=== PATIENT | male | born 1970 | race Caucasian/White ===

== ENCOUNTER 2017-10-04 12:30 | Emergency (ER) | payer OTHER | END 2017-10-04 16:53 | disposition home or self-care (01) | LOC: M ED 12:30 | DX: G57.11 Meralgia paresthetica, right lower limb (principal); I10 Essential (primary) hypertension; Z79.899 Other long term (current) drug therapy; Z87.891 Personal history of nicotine dependence | CPT/HCPCS: 93971 ==

== ENCOUNTER → 2017-12-06 | Outpatient (CLI) | payer OTHER | LOC: M WUC 13:24 | DX: M85.88 Other specified disorders of bone density and structure, other site (principal); M25.78 Osteophyte, vertebrae; M51.37 Other intervertebral disc degeneration, lumbosacral region; G57.10 Meralgia paresthetica, unspecified lower limb; M54.5 Low back pain | CPT/HCPCS: 72110 ==

== ENCOUNTER 2018-03-04 16:38 | Emergency (ER) | payer OTHER | END 2018-03-04 17:50 | disposition home or self-care (01) | LOC: M ED 16:38 | DX: S13.4XXA Sprain of ligaments of cervical spine, initial encounter (principal); S46.902A Unspecified injury of unspecified muscle, fascia and tendon at shoulder and upper arm level, left arm, initial encounter; V49.40XA Driver injured in collision with unspecified motor vehicles in traffic accident, initial encounter; Y92.410 Unspecified street and highway as the place of occurrence of the external cause; I10 Essential (primary) hypertension; Z79.899 Other long term (current) drug therapy | CPT/HCPCS: 99283 ==

== ENCOUNTER → 2019-03-06 | Outpatient (CLI) | payer OTHER ==
[~2019-03-06] MED LIST: IBUP-1022 PO; LISI10TA4 PO; NEUR300C PO; PRED20TA PO; ROBA500T PO
[2019-03-06 18:02] LABS: BASO # 0.1 10^3/uL (0.0-0.2); BASO % 1.5 % (0.0-1.0); EOS # 0.6 10^3/uL (0.0-0.50); EOS % 8.6 % (0.0-3.0); HEMATOCRIT 46.2 % (42.0-52.0); HEMOGLOBIN 14.9 g/dl (13.5-17.5); LYMPH # 1.6 10^3/uL (1.5-4.5); LYMPH % 23.7 % (24.0-44.0); MEAN CORPUSCULAR HEMOGLOBIN 27.9 pg (27.0-33.0); MEAN CORPUSCULAR HGB CONC 32.3 g/dl (32.0-36.5); MEAN CORPUSCULAR VOLUME 86.5 fl (80.0-96.0); MONO # 0.7 10^3/uL (0.0-0.8); MONO % 9.6 % (0.0-5.0); NEUTROPHILS # 3.8 10^3/uL (1.8-7.7); NEUTROPHILS % 56.2 % (36.0-66.0); PLATELET COUNT, AUTOMATED 278 10^3/uL (150-450); RED BLOOD COUNT 5.34 10^6/uL (4.30-6.10); WHITE BLOOD COUNT 6.8 10^3/uL (4.0-10.0)
[2019-03-06 18:04] LABS: ALBUMIN 4.1 GM/DL (3.2-5.2); ALT/SGPT 127 U/L (12-78); BILIRUBIN,TOTAL 0.9 MG/DL (0.2-1.0); BLOOD UREA NITROGEN 14 MG/DL (7-18); CARBON DIOXIDE LEVEL 27 MEQ/L (21-32); CHLORIDE LEVEL 104 MEQ/L (98-107); CREATININE FOR GFR 1.24 MG/DL (0.70-1.30); GLOMERULAR FILTRATION RATE > 60.0 (>60); GLUCOSE, FASTING 88 MG/DL (70-100); POTASSIUM SERUM 4.2 MEQ/L (3.5-5.1); SODIUM LEVEL 141 MEQ/L (136-145); TOTAL PROTEIN 7.6 GM/DL (6.4-8.2)
== END ==
LOC: M WUC 10:33
PROVIDERS: ATTEND Nurse Practitioner Family
DX: I10 Essential (primary) hypertension (principal)

== ENCOUNTER 2019-05-07 22:16 | Emergency (ER) | payer OTHER ==
[~2019-05-07] VITALS: Ht 172.7 cm; Wt 106.8 kg
[2019-05-08 00:29] VITALS: BP 121/67
--- NOTE | 2019-05-08 00:29 | REPVR ---
EXAM: US Duplex Right Lower Extremity Veins, Limited EXAM DATE/TIME: 05/07/2019 11:50 PM CLINICAL HISTORY: 49 years old, male; Pain; Leg, lower; Right; Additional info: Right lower leg swelling; R/O dvt TECHNIQUE: Imaging protocol: Real-time Duplex ultrasound of the Right Lower Extremity with 2-D escalante scale, color Doppler flow and spectral waveform analysis with image documentation. Limited exam was focused on the right lower extremity veins. COMPARISON: No relevant prior studies available. FINDINGS: Right deep veins: Unremarkable. The common femoral, femoral, proximal profunda femoral and popliteal veins are patent without thrombus. Normal Doppler waveforms. Normal compressibility and/or augmentation response. Right superficial veins: Thrombosed superficial varicosities along the anterior aspect of the lower leg, corresponding to the patient's palpable abnormality. Saphenofemoral junction is patent without thrombus. Soft tissues: Unremarkable. IMPRESSION: 1. No sonographic evidence of deep vein thrombosis. 2. Superficial thrombophlebitis, as described above. Electronically signed by: Kavon Ceron On 05/08/2019 00:28:44 AM
[2019-05-08] MEDS ORDERED: CEPH500C PO (01:05)
[2019-05-08] MEDS ORDERED: CEPHALEXIN 500 MG CAP PO ONE (01:15)
[2019-10-06] MEDS ORDERED: LYRI75CA PO (14:40)
[2019-10-06] MEDS ORDERED: OMEP40CA97 PO (14:40)
== END 2019-05-08 01:14 | disposition home or self-care (01) ==
LOC: M ED 22:16
DX: I80.00 Phlebitis and thrombophlebitis of superficial vessels of unspecified lower extremity (principal); L03.116 Cellulitis of left lower limb; I10 Essential (primary) hypertension; Z79.899 Other long term (current) drug therapy

== ENCOUNTER → 2019-08-15 | Outpatient (CLI) | payer OTHER ==
[~2019-08-15] MED LIST changes: +CEPH500C PO
[2019-08-15 16:59] LABS: ALBUMIN 3.9 GM/DL (3.2-5.2); ALT/SGPT 79 U/L (12-78); BLOOD UREA NITROGEN 15 MG/DL (7-18); CARBON DIOXIDE LEVEL 28 MEQ/L (21-32); CHLORIDE LEVEL 105 MEQ/L (98-107); CHOLESTEROL LEVEL 149 MG/DL (<200); CHOLESTEROL RISK RATIO 3.465 (<5); CREATININE FOR GFR 1.24 MG/DL (0.70-1.30); FREE T4 1.01 NG/DL (0.76-1.46); GLOMERULAR FILTRATION RATE > 60.0 (>56); GLUCOSE, FASTING 95 MG/DL (70-100); HDL CHOLESTEROL 43 MG/DL (>40); LDL CHOLESTEROL 84 MG/DL (<100); NON-HDL-C 106 MG/DL; POTASSIUM SERUM 4.7 MEQ/L (3.5-5.1); SODIUM LEVEL 139 MEQ/L (136-145); TOTAL PROTEIN 7.4 GM/DL (6.4-8.2); TRIGLYCERIDES LEVEL 112 MG/DL (<150)
== END ==
LOC: M WUC 11:04
PROVIDERS: ATTEND Physician Assistant
DX: Z12.5 Encounter for screening for malignant neoplasm of prostate (principal); I10 Essential (primary) hypertension

== ENCOUNTER 2019-10-13 11:18 | Day surgery (SDC) | payer OTHER ==
[~2019-10-13] VITALS: Ht 172.7 cm; Wt 105.7 kg
[~2019-10-13 11:18] MED LIST changes: +LYRI75CA PO; +OMEP40CA97 PO
[2019-10-13] MEDS ORDERED: LIDOCAINE 2% INJ 100 MG/5 ML SDV (FOR ANES.) As Ordered ONE (12:31)
[2019-10-13] MEDS ORDERED: propofoL 200 MG/20 ML VIAL As Ordered ONE ×2 (12:31→13:05)
[2019-10-13] MEDS: NS 1,000 ML IV SCH (12:32)
--- NOTE | 2019-10-13 13:13 | ROOR ---
Patient Name: Giovani Menjivar Procedure Date: 10/13/2019 12:55 PM Date of : 1970 Age: 49 Room: [facility] Gender: Male Note Status: Finalized Procedure: Colonoscopy Indications: Screening for colorectal malignant neoplasm Providers: Juan A Negron Jr, MD Referring MD: Jeni PATINO DO Requesting Provider: Medicines: Propofol per Anesthesia Complications: No immediate complications. Procedure: Pre-Anesthesia Assessment: - Prior to the procedure, a History and Physical was performed, and patient medications and allergies were reviewed. The patient is competent. The risks and benefits of the procedure and the sedation options and risks were discussed with the patient. All questions were answered and informed consent was obtained. Patient identification and proposed procedure were verified by the physician and the nurse in the pre-procedure area and in the procedure room. Mental Status Examination: alert and oriented. Airway Examination: normal oropharyngeal airway and neck mobility. Respiratory Examination: clear to auscultation. CV Examination: normal. ASA Grade Assessment: II - A patient with mild systemic disease. After reviewing the risks and benefits, the patient was deemed in satisfactory condition to undergo the procedure. The anesthesia plan was to use moderate sedation / analgesia (conscious sedation). Immediately prior to administration of medications, the patient was re-assessed for adequacy to receive sedatives. The heart rate, respiratory rate, oxygen saturations, blood pressure, adequacy of pulmonary ventilation, and response to care were monitored throughout the procedure. The physical status of the patient was re-assessed after the procedure. The Colonoscope was introduced through the anus and advanced to the cecum, identified by appendiceal orifice and ileocecal valve. The colonoscopy was performed without difficulty. The patient tolerated the procedure well. The quality of the bowel preparation was adequate. Findings: The sigmoid colon, descending colon, transverse colon, ascending colon, cecum, appendiceal orifice and ileocecal valve appeared normal. Three polyps were found in the rectum and recto-sigmoid colon. The polyps were diminutive in size. These polyps were removed with a cold snare. Resection and retrieval were complete. Non-bleeding internal hemorrhoids were found during endoscopy. The hemorrhoids were Grade III (internal hemorrhoids that prolapse but require manual reduction). Impression: - The sigmoid colon, descending colon, transverse colon, ascending colon, cecum, appendiceal orifice and ileocecal valve are normal. - Three diminutive polyps in the rectum and at the recto-sigmoid colon, removed with a cold snare. Resected and retrieved. - Non-bleeding internal hemorrhoids. Recommendation: - Discharge patient to home (ambulatory). - Repeat colonoscopy in 5-10 years for surveillance based on pathology results. Juan A Negron MD Juan A Negron Jr, MD 10/13/2019 1:12:31 PM Electronically signed by Juan A Negron Jr, MD Number of Addenda: 0 Note Initiated On: 10/13/2019 12:55 PM Estimated Blood Loss: Estimated blood loss: none.
[2019-10-13 13:30] VITALS: BP 121/92
== END 2019-10-13 13:42 | disposition home or self-care (01) ==
LOC: M OPP 11:18
PROVIDERS: ATTEND Surgery
DX: Z12.11 Encounter for screening for malignant neoplasm of colon (principal); K64.2 Third degree hemorrhoids; K62.1 Rectal polyp; D12.7 Benign neoplasm of rectosigmoid junction; I10 Essential (primary) hypertension; K21.9 Gastro-esophageal reflux disease without esophagitis; E66.01 Morbid (severe) obesity due to excess calories; Z79.899 Other long term (current) drug therapy

== ENCOUNTER → 2019-12-18 | Outpatient (CLI) | payer OTHER ==
--- NOTE | 2019-12-18 16:38 | REP ---
REASON: Pain after trauma. There is mild to moderate diffuse soft tissue swelling involving the 2nd digit. There is no evidence of an acute fracture. Electronically Signed by Sav Snow DO 12/18/2019 04:48 P
== END ==
LOC: M WUC 12:00
PROVIDERS: ATTEND Physician Assistant
DX: M79.644 Pain in right finger(s) (principal)

== ENCOUNTER 2020-06-02 19:27 | Inpatient (IN) | payer OTHER ==
[~2020-06-02] VITALS: Ht 172.7 cm; Wt 112.1 kg
[2020-06-02] MEDS ORDERED: NS 1,000 ML IV ONE (20:15)
[2020-06-02 20:28] LABS: VENOUS BASE EXCESS -5.1 (-2.0-2.0); VENOUS HCO3 20.5 MEQ/L (23.0-27.0); VENOUS PARTIAL PRESSURE CO2 39.9 mmHg (38.0-50.0); VENOUS PARTIAL PRESSURE O2 70.1 mmHg (30.0-50.0); VENOUS PH 7.328 UNITS (7.330-7.430); VENOUS STANDARD HCO3 20.2 MEQ/L; VENOUS TOTAL CO2 21.7 MEQ/L (24.0-28.0)
[2020-06-02 20:29] LABS: VENOUS O2 SATURATION 92.3 % (60.0-80.0)
[2020-06-02 20:34] LABS: BASO # 0.1 10^3/uL (0.0-0.2); BASO % 0.8 % (0.0-1.0); EOS # 0.2 10^3/uL (0.0-0.5); EOS % 2.2 % (0.0-3.0); HEMATOCRIT 48.1 % (42.0-52.0); HEMOGLOBIN 14.8 g/dl (13.5-17.5); LYMPH % 13.5 % (24.0-44.0); MEAN CORPUSCULAR HEMOGLOBIN 27.5 pg (27.0-33.0); MEAN CORPUSCULAR HGB CONC 30.8 g/dl (32.0-36.5); MEAN CORPUSCULAR VOLUME 89.2 fl (80.0-96.0); MONO # 0.7 10^3/uL (0.0-0.8); MONO % 9.1 % (0.0-5.0); NEUTROPHILS # 5.7 10^3/uL (1.5-8.5); NEUTROPHILS % 74.3 % (36.0-66.0); PLATELET COUNT, AUTOMATED 258 10^3/uL (150-450); RED BLOOD COUNT 5.39 10^6/uL (4.30-6.10); WHITE BLOOD COUNT 7.7 10^3/uL (4.0-10.0)
[2020-06-02 20:52] LABS: OSMOLALITY SERUM 334 MOSM/KG (275-295)
[2020-06-02 20:58] LABS: HEMOGLOBIN A1c 10.9 %
[2020-06-02 21:04] LABS: ACETONE/KETONE 1.38 MG/DL (<2.81); ALBUMIN 4.2 GM/DL (3.2-5.2); ALT/SGPT 153 U/L (12-78); BILIRUBIN,DIRECT 0.3 MG/DL (0.0-0.2); BILIRUBIN,TOTAL 1.5 MG/DL (0.2-1.0); BLOOD UREA NITROGEN 19 MG/DL (7-18); CARBON DIOXIDE LEVEL 22 MEQ/L (21-32); CHLORIDE LEVEL 86 MEQ/L (98-107); CK-MB VALUE MASS 2.5 NG/ML (<3.6); CPK CREATINE PHOSPHOKINASE 924 U/L (39-308); CREATININE FOR GFR 2.05 MG/DL (0.70-1.30); GLOMERULAR FILTRATION RATE 36.6 (>56); LIPASE 177 U/L (73-393); MAGNESIUM LEVEL 2.5 MG/DL (1.8-2.4); MB/CK RELATIVE INDEX 0.27 (< OR =4); PHOSPHORUS LEVEL 4.2 MG/DL (2.5-4.9); POTASSIUM SERUM 5.8 MEQ/L (3.5-5.1); SODIUM LEVEL 119 MEQ/L (136-145); TOTAL PROTEIN 8.4 GM/DL (6.4-8.2); TROPONIN I < 0.02 NG/ML (< 0.10)
[2020-06-02 21:05] LABS: GLUCOSE, FASTING 1219 MG/DL (70-100)
[2020-06-02] MEDS ORDERED: HumuLIN R (REGULAR) INSULIN (NovoLIN R) **100U/ML** PER UNIT As Ordered ONE (21:26)
[2020-06-02] MEDS ORDERED: HumuLIN R (REGULAR) INSULIN (NovoLIN R) **100U/ML** PER UNIT IV ONE (21:30)
[2020-06-02] MEDS ORDERED: NS 2,200 ML in IV 1 EA IV ONE (21:30)
[2020-06-02] MEDS ORDERED: INSULIN REGULAR IN 0.9 % NACL 100 UNIT in IV 1 EA IV SCH ×2 (22:14)
[2020-06-02] MEDS ORDERED: NS 1,000 ML IV SCH (22:15)
[2020-06-02 23:00] LABS: VENOUS PH 7.398 UNITS (7.330-7.430)
[2020-06-02 23:01] LABS: VENOUS BASE EXCESS -4.2 (-2.0-2.0); VENOUS HCO3 19.5 MEQ/L (23.0-27.0); VENOUS O2 SATURATION 99.5 % (60.0-80.0); VENOUS PARTIAL PRESSURE CO2 32.3 mmHg (38.0-50.0); VENOUS PARTIAL PRESSURE O2 209.4 mmHg (30.0-50.0); VENOUS STANDARD HCO3 21.1 MEQ/L; VENOUS TOTAL CO2 20.5 MEQ/L (24.0-28.0)
[2020-06-02] MEDS ORDERED: GLUCOSE 4GM CHEW TABLET PO PRN (23:15)
[2020-06-02] MEDS ORDERED: GLUCAGON INJ 1MG VIAL SC PRN (23:15)
[2020-06-02] MEDS ORDERED: DEXTROSE 50% 50 ML SYRINGE IV PRN (23:15)
[2020-06-02 23:32] LABS: CALCIUM LEVEL 8.7 MG/DL (8.5-10.1); CREATININE FOR GFR 1.56 MG/DL (0.70-1.30); GLOMERULAR FILTRATION RATE 50.2 (>56)
--- NOTE | 2020-06-02 23:34 | HPEPDOC ---
General Date of Admission Jun 02, 2020 at 21:24 Date of Service: Jun 02, 2020 Chief Complaint The patient is a 50-year-old male admitted with a reason for visit of Uncontrolled Type 2 Diabetes Mellitus W/ Hyperosmo. Source: Patient Exam Limitations: No limitations Severity: Moderate, Severe Associated Symptoms: Other (dry mouth, blurry vision, diarrhea) History of Present Illness Patient is a 50 yo male with PMH of HTN and GERD without patient knowing having hx of diabetes mellitus presented to [facility] due to dry mouth, blurry vision, and diarrhea. He reported having dry mouth for 1 wk, blurry vision for 4 days, diarrhea for 2 days,and left foot cramp with b/l hand cramp starting today. In addition she also reported he also reported polydipsia and polyuria for the past week without polyphagia. Reported chronic right thigh numbness for years; reported he was not checked/screened for DM prior. Denies any fever, chills, nausea, vomiting, abdominal pain, or any other symptoms except for above Home Medications Scheduled Lisinopril (Lisinopril) 10 Mg Tab, 10 MG PO DAILY, (Reported) Omeprazole (Omeprazole) 40 Mg Capsule.dr, 40 MG PO DAILY, (Reported) Pregabalin (Lyrica) 75 Mg Capsule, 75 MG PO TID, (Reported) Allergies Coded Allergies: No Known Allergies (Unverified , 10/06/19) Past Medical History Medical History HTN GERD Right thigh numbness(thigh to knee), chronic for years Surgical History Reported left groin hernia surgery done more than 10 years ago Screening colonoscopy 10/13/2019 Social History * Smoker: Denies Alcohol: Denies Drugs: denies Lives at home with and 3 kids A-FIB/CHADSVASC A-FIB History Current/History of A-Fib/PAF?: No Review of Systems Constitutional: Denies: Chills, Fever Eyes: Reports: Vision change (blurry vision) ENT: Reports: Other Symptoms (dry mouth) Pulmonary: Denies: Dyspnea Cardiovascular: Denies: Chest Pain, Palpitations Gastrointestinal: Reports: Diarrhea; Denies: Nausea, Vomiting, Abdominal Pain Endocrine: Reports: Polydipsia, Polyuria; Denies: Polyphagia Musculoskeletal: Reports: Other Symptoms (B/l hand cramping with left foot cramping) Neurological: Reports: Numbness (right thigh chronic numbness); Denies: Change in speech Physical Examination General Exam: Positive: Alert, Cooperative, No Acute Distress Eye Exam: Positive: Conjunctiva & lids normal, EOMI, Other Eye Symptoms (B/l pupil equal round and reactive); Negative: Sclera icteric ENT Exam: Positive: Atraumatic, Tongue Midline, Nares Patent Neck Exam: Positive: Supple Chest Exam: Positive: Clear to auscultation, Normal air movement; Negative: Rales, Rhonchi, Wheezing Heart Exam: Positive: Tachycardic (mildly tachycardic), Regular Rhythm, Normal S1, Normal S2; Negative: Murmurs, Rubs Abdomen Exam: Positive: Normal bowel sounds, Soft, Other (obese abdomen); Negative: Tenderness Extremity Exam: Negative: Edema, Swelling Neuro Exam: Positive: Normal Speech, Strength at 5/5 X4 ext, Normal Tone, Sensation Intact, Cranial Nerves 3-12 NL, Other (no numbness or tingling elicited upon touch) Psych Exam: Positive: Mental status NL, Mood NL, Memory Intact, Oriented x 3 Vital Signs Vital Signs Date Time Temp Pulse Resp B/P (MAP) Pulse Ox O2 Delivery O2 Flow Rate FiO2 06/02/20 21:17 102 20 136/70 (92) 95 Room Air 06/02/20 19:28 98.1 Laboratory Data Labs 24H Laboratory Tests 2 06/02/20 20:12: Immature Granulocyte % (Auto) 0.1, Neutrophils (%) (Auto) 74.3H, Lymphocytes (%) (Auto) 13.5L, Monocytes (%) (Auto) 9.1H, Eosinophils (%) (Auto) 2.2, Basophils (%) (Auto) 0.8, Neutrophils # (Auto) 5.7, Lymphocytes # (Auto) 1.0L, Monocytes # (Auto) 0.7, Eosinophils # (Auto) 0.2, Basophils # (Auto) 0.1, Nucleated Red Blood Cells % (auto) 0.0, Urine Color COLORLESS, Urine Appearance CLEAR, Urine pH 6.0, Urine Specific [place] 1.023, Urine Protein NEGATIVE, Urine Glucose (UA) 3+H, Urine Ketones NEGATIVE, Urine Blood NEGATIVE, Urine Nitrite NEGATIVE, Urine Bilirubin NEGATIVE, Urine Urobilinogen 0.2, Urine Leukocyte Esterase NEGATIVE, Urine WBC (Auto) 0, Urine RBC (Auto) 0, Urine Hyaline Casts (Auto) 0, Urine Bacteria (Auto) NEGATIVE, Urine Squamous Epithelial Cells 0, Urine Sperm (Auto) , Blood Gas Bicarbonate Standard 20.2, Venous Blood pH 7.328L, Venous Blood Partial Pressure CO2 39.9, Venous Blood Partial Pressure O2 70.1H, Venous Blood Total Carbon Dioxide 21.7L, Venous Blood HCO3 20.5L, Venous Blood Oxygen Saturation 92.3H, Venous Blood Base Excess -5.1L, Anion Gap 11, Glomerular Filtration Rate 36.6L, Estimated Mean Plasma Glucose 266H, Hemoglobin A1c 10.9, Osmolality 334H, Calcium Level 9.0, Phosphorus Level 4.2, Magnesium Level 2.5H, Total Bilirubin 1.5H, Direct Bilirubin 0.3H, Aspartate Amino Transf (AST/SGOT) 63H, Alanine Aminotransferase (ALT/SGPT) 153H, Alkaline Phosphatase 122H, Total Creatine Kinase 924H, Creatine Kinase MB 2.5, Creatine Kinase MB Relative Index 0.27, Troponin I < 0.02, Total Protein 8.4H, Albumin 4.2, Albumin/Globulin Ratio 1.0, Lipase 177, B-Hydroxybutyrate 1.38 06/02/20 22:49: Blood Gas Bicarbonate Standard 21.1, Venous Blood pH 7.398, Venous Blood Partial Pressure CO2 32.3L, Venous Blood Partial Pressure O2 209.4H, Venous Blood Total Carbon Dioxide 20.5L, Venous Blood HCO3 19.5L, Venous Blood Oxygen Saturation 99.5H, Venous Blood Base Excess -4.2L CBC/BMP Laboratory Tests 06/02/20 20:12 Microbiology Microbiology 06/02/20 Blood Culture, Received Pending Assessment/Plan 1. HHS likely 2/2 undiagnosed type 2 DM. A1C 10.9. Serum ketone within reference range. Glucose 1219 on BMP. Blurry vision, dry mouth, cramping in extremities,polydipsia, polyuria, no AMS. Pt carry normal conversation and answers questions appropriately. Pt already received 3L NS in ER. Appears only m inimally hypovolemic at this time. However appears to have FREEDOM in ER, will wait for recheck BMP to consider if further IVF is needed as he received 3 L NS bolus in ER. Na tugtnriugau=694, corrected Wx=811. Pt will be admitted to ICU. Glucose checks Q1H, s/p IV insulin bolus, will start IV regular insulin drip. BMP Q2H. NPO except for meds for now. Will resume consistent carbohydrate diet and start with 20 units levemir BID and keep IV insulin drip for 3 hours after SC insulin. If recheck BMP shows hypernatremia with improvement of FREEDOM(proving prerenal FREEDOM), will start 0.45%NaCl based on protocol. Seizure precaution, fall precaution, neuro checks, vital signs, hypoglycemia protocol. 2. FREEDOM, likely pre-renal. Will monitor BMP to see if there's improvement with IVF 3. HTN. Will hold home med lisinopril at this time d/t FREEDOM. Consider amlodipine if BP elevates vs other agents depending on other vitals 4. GERD. Cont home med Omeprazole 5.Chronic neuropathy with right thigh numbness, likely 2/2 undiagnosed type 2 DM. A1C 10.9. Cont home med gabapentin. 6. Hyperkalemia 2/2 extracellular shift from lack of endogenous insulin from undiagnosed DM. K=5.8 in ER. BMP Q2H for HHS. Tele monitor for electrolyte derangements. DVT prophylaxis: SCD and TEDS Plan / VTE VTE Prophylaxis Ordered?: Yes Plan IVF: Initiate Diet: Make NPO Diagnostics: Check Labs, Repeat Labs in AM Anticipated Discharge: Home GME ATTESTATION GME ATTESTATION My faculty preceptor for this patient encounter was physically present during the encounter and was fully available. All aspects of the patient interview, examination, medical decision making process, and medical care plan development were reviewed and approved by the faculty preceptor. The faculty preceptor is aware and concurs with the plan as stated in the body of this note and will attest to such by his/her cosignature. ATTENDING NOTE I reviewed the note and agree with the findings as documented. is a 50 yr old M w a hx of HTN, Neuropathy & Obesity who presented with c/o dry mouth, blurry vision, & diarrhea; he will be admitted for management of hyperosmolar hyperglycemic state w/o comma, FREEDOM, SIRS, elevated CPK, and transaminitis. We will treat him for his HHS and FREEDOM, f/u blood cx, GI panel, liver US, hep panel, renal US, Ulytes and trend CPK rest per 's H&P LEO FLOYD DO Jun 02, 2020 23:34 FABIAN TREVIÑO MD Jun 03, 2020 01:58
[2020-06-02] MEDS ORDERED: POTASSIUM CHLORIDE INJ 30 MEQ in NS 1,000 ML IV ONE (23:45)
[2020-06-02] MEDS ORDERED: NS 0.45% 1,000 ML IV SCH (23:45)
[2020-06-02 23:48] VITALS: BP 155/89
[2020-06-03] VITALS (7 sets, daily range): BP systolic 121–139; BP diastolic 63–75
[2020-06-03 01:56] LABS: VENOUS BASE EXCESS -6.1 (-2.0-2.0); VENOUS HCO3 19.1 MEQ/L (23.0-27.0); VENOUS O2 SATURATION 91.1 % (60.0-80.0); VENOUS PARTIAL PRESSURE CO2 37.2 mmHg (38.0-50.0); VENOUS PARTIAL PRESSURE O2 62.5 mmHg (30.0-50.0); VENOUS PH 7.329 UNITS (7.330-7.430); VENOUS STANDARD HCO3 19.4 MEQ/L; VENOUS TOTAL CO2 20.3 MEQ/L (24.0-28.0)
[2020-06-03] MEDS ORDERED: POTASSIUM CHLORIDE INJ 10 MEQ in NS 1,000 ML IV ONE (02:00)
[2020-06-03] MEDS: INSULIN IV RATE CHANGE DOCUMENTATION ML/HR XX SCH ×6 (02:04→09:11)
[2020-06-03 02:40] LABS: OSMOLALITY SERUM 304 MOSM/KG (275-295)
[2020-06-03 02:42] LABS: BLOOD UREA NITROGEN 13 MG/DL (7-18); CALCIUM LEVEL 8.5 MG/DL (8.5-10.1); CARBON DIOXIDE LEVEL 26 MEQ/L (21-32); CHLORIDE LEVEL 106 MEQ/L (98-107); CREATININE FOR GFR 1.35 MG/DL (0.70-1.30); GLOMERULAR FILTRATION RATE 59.3 (>56); GLUCOSE, FASTING 383 MG/DL (70-100); MAGNESIUM LEVEL 2.2 MG/DL (1.8-2.4); PHOSPHORUS LEVEL 2.7 MG/DL (2.5-4.9); POTASSIUM SERUM 4.2 MEQ/L (3.5-5.1); SODIUM LEVEL 139 MEQ/L (136-145); TROPONIN I < 0.02 NG/ML (< 0.10)
[2020-06-03] MEDS: KCL 10MEQ IN D5/0.45NS 1000ML 1,000 ML IV SCH ×2 (04:00→08:32)
[2020-06-03 06:55] LABS: ALBUMIN 3.6 GM/DL (3.2-5.2); ALT/SGPT 116 U/L (12-78); BILIRUBIN,DIRECT 0.3 MG/DL (0.0-0.2); BILIRUBIN,TOTAL 0.9 MG/DL (0.2-1.0); CPK CREATINE PHOSPHOKINASE 860 U/L (39-308); TOTAL PROTEIN 6.9 GM/DL (6.4-8.2)
[2020-06-03 07:22] LABS: OSMOLALITY SERUM 298 MOSM/KG (275-295)
[2020-06-03 07:53] LABS: BLOOD UREA NITROGEN 12 MG/DL (7-18); CALCIUM LEVEL 8.3 MG/DL (8.5-10.1); CARBON DIOXIDE LEVEL 28 MEQ/L (21-32); CHLORIDE LEVEL 110 MEQ/L (98-107); GLOMERULAR FILTRATION RATE > 60.0 (>56); GLUCOSE, FASTING 187 MG/DL (70-100); PHOSPHORUS LEVEL 1.7 MG/DL (2.5-4.9); POTASSIUM SERUM 3.9 MEQ/L (3.5-5.1); SODIUM LEVEL 142 MEQ/L (136-145); TROPONIN I < 0.02 NG/ML (< 0.10)
[2020-06-03] MEDS: ENOXAPARIN 40MG/0.4ML SYRINGE (J1650 PER 10MG) SC SCH (08:17)
[2020-06-03] MEDS: PREGABALIN 75 MG CAP(LYRICA) PO SCH ×3 (08:17→20:29)
[2020-06-03] MEDS: OMEPRAZOLE 20 MG CAP PO SCH (08:17)
[2020-06-03] MEDS: LEVEMIR (INSULIN DETEMIR) 1 UNITS/0.01ML SC SCH (08:17)
[2020-06-03 10:55] LABS: BLOOD UREA NITROGEN 12 MG/DL (7-18); CALCIUM LEVEL 8.2 MG/DL (8.5-10.1); CARBON DIOXIDE LEVEL 24 MEQ/L (21-32); CHLORIDE LEVEL 108 MEQ/L (98-107); CREATININE FOR GFR 1.22 MG/DL (0.70-1.30); GLOMERULAR FILTRATION RATE > 60.0 (>56); GLUCOSE, FASTING 263 MG/DL (70-100); POTASSIUM SERUM 3.9 MEQ/L (3.5-5.1); SODIUM LEVEL 139 MEQ/L (136-145)
[2020-06-03 11:55] LABS: MAGNESIUM LEVEL 1.8 MG/DL (1.8-2.4)
[2020-06-03] MEDS: NEUTRA-PHOS 1.5 GM PACKET PO SCH ×3 (12:09→20:29)
[2020-06-03] MEDS: HumaLOG INSULIN (NovoLOG) PER UNIT SC SCH ×2 (12:10→17:19)
--- NOTE | 2020-06-03 13:32 | IPNPDOC ---
Text Note Date of Service The patient was seen on 06/03/20. NOTE Subjective: Patient is a 50 year old male with PMH of HTN, GERD who presented to the ER with complaints of dry mouth, burry vision and diarrhea. On arrival to the ER patient was found to have a glucose of 1200 who was admitted to the ICU for HHS. Patient was admitted to the hospitalist service for further evaluation and treatment. Patient reports that he was not diagnosed with DM2 in the past. Has not been on any medications as an outpatient. Patient was seen and examined at the bedside. Currently patient reports nausea. Denies any CP, SOB or palpitations. Denies any abdominal pain, diarrhea / constipation or urinary discomfort. Objective: Vitals (See below) General: Lying in bed, no acute distress, comfortable, AAOx3 HEENT: NC, AT CVS: +S1S2 Lungs: Fair air entry b/l, no wheezing / rhonchi / rales Abdomen: Soft, ND, NT Extremities: No edema noted, - Calf tenderness Assessment and plan: s/p HHS - likely 2/2 undiagnosed type 2 DM - Patient does not have a prior history of DM2 - Patient was found to have a glucose of 1200 and Osmolality of 334 - He was admitted to ICU for insulin drip - Patient labs have normalized; s/p Insulin drip - Bridged to Levemir long acting and will start ISS (AC/HS) s/p FREEDOM - Cr appears to be at baseline - Will stop IV fluids Hypophosphatemia - Will supplement s/p Hyperkalemia HTN - BP well controlled - Will resume Lisinopril Lyrica - c/w Gabapentin GERD - c/w Omeprazole DVT prophylaxis - c/w SCD and TEDS Disposition: - Anticipate DC tomorrow VS,Fishbone, I+O VS, Fishbone, I+O Laboratory Tests 06/02/20 20:12 06/02/20 22:49 06/03/20 01:46 06/03/20 06:12 Vital Signs Date Time Temp Pulse Resp B/P (MAP) Pulse Ox O2 Delivery O2 Flow Rate FiO2 06/03/20 12:00 97.4 91 18 135/72 (93) 97 Room Air I&O- Last 24 Hours up to 6 AM 06/03/20 06:00 Intake Total 5050 ml Output Total 2800 ml Balance 2250 ml SANCHEZ,VIJESH MD Jun 03, 2020 13:32
[2020-06-03] MEDS: lisinopriL 10 MG TAB PO SCH (14:53)
--- NOTE | 2020-06-03 15:54 | REPVR ---
PROCEDURE INFORMATION: Exam: US Abdomen, Limited; Right Upper Quadrant Exam date and time: 06/03/2020 6:33 AM Age: 50 years old Clinical indication: Abnormal findings; Abnormal lab test; Other: Transaminitis, felisa; Additional info: Transaminitis and felisa TECHNIQUE: Imaging protocol: US abdomen. Real time ultrasound with image documentation. Limited exam focused on the right upper quadrant. COMPARISON: No relevant prior studies available. FINDINGS: Limitations: Large body habitus causes unavoidable image degradation. Bowel gas overlies and obscures deeper organs. Increased hepatic echogenicity and attenuation. Because the liver is difficult to penetrate, evaluation of the posterior liver is limited. Liver: Liver size is normal. Liver contour is normal. Moderately increased hepatic echogenicity and attenuation is most likely due to steatosis, but can be due to diffuse hepatocellular disease of any cause. However, because the liver is difficult to penetrate, visualization of the posterior hepatic segments is limited. There is no hepatic mass. Intrahepatic bile ducts are not dilated. Moderate steatosis. Suboptimal visualization of the liver particularly the posterior segments. Gallbladder: Normal size. Wall thickness is 1.5 mm, which is normal. No gallstones. Merritt's sign is negative. Common bile duct: 3 mm at the georgina hepatis, which is normal. Pancreas: The pancreas is obscured by bowel gas. Right kidney: The right kidney is normal in size. It is 10.5 x 4.8 x 5.4 cm. No right renal stone, solid mass, cortical loss or hydronephrosis. IMPRESSION: 1. No acute findings. 2. Steatosis. No hepatic mass. Poor visualization of the posterior hepatic segments. 3. Nonvisualization of the pancreas due to overlying bowel gas. 4. The gallbladder and biliary tree are unremarkable. 5. The right kidney is normal. Electronically signed by: Margarito Salas On 06/03/2020 15:53:54 PM
[2020-06-03] MEDS ORDERED: ACETAMINOPHEN TAB 650MG DOSE (2X325MG) PO PRN (18:00)
[2020-06-03] MEDS ORDERED: HumaLOG INSULIN (NovoLOG) PER UNIT SC SCH (21:00)
[2020-06-03 21:09] LABS: MAGNESIUM LEVEL 2.3 MG/DL (1.8-2.4)
[2020-06-04 06:00] VITALS: BP 112/72
[2020-06-04] MEDS: LEVEMIR (INSULIN DETEMIR) 1 UNITS/0.01ML SC SCH (08:07)
[2020-06-04] MEDS: HumaLOG INSULIN (NovoLOG) PER UNIT SC SCH ×2 (08:08→11:57)
[2020-06-04] MEDS: ENOXAPARIN 40MG/0.4ML SYRINGE (J1650 PER 10MG) SC SCH (08:08)
[2020-06-04] MEDS: PREGABALIN 75 MG CAP(LYRICA) PO SCH (08:09)
[2020-06-04] MEDS: NEUTRA-PHOS 1.5 GM PACKET PO SCH (08:09)
[2020-06-04] MEDS: OMEPRAZOLE 20 MG CAP PO SCH (08:09)
[2020-06-04 08:11] VITALS: BP 119/78
[2020-06-04] MEDS: lisinopriL 10 MG TAB PO SCH (08:11)
[2020-06-04] MEDS ORDERED: ATOR40TA75 PO (08:25)
[2020-06-04] MEDS ORDERED: LANTINJ4 SC (08:25)
[2020-06-04] MEDS ORDERED: GLYB125TA PO (08:25)
[2020-06-04 08:30] LABS: HEMATOCRIT 42.5 % (42.0-52.0); HEMOGLOBIN 14.3 g/dl (13.5-17.5); MEAN CORPUSCULAR HEMOGLOBIN 27.6 pg (27.0-33.0); MEAN CORPUSCULAR HGB CONC 33.6 g/dl (32.0-36.5); PLATELET COUNT, AUTOMATED 212 10^3/uL (150-450); RED BLOOD COUNT 5.18 10^6/uL (4.30-6.10)
[2020-06-04 08:44] LABS: BLOOD UREA NITROGEN 11 MG/DL (7-18); CALCIUM LEVEL 8.5 MG/DL (8.5-10.1); CARBON DIOXIDE LEVEL 25 MEQ/L (21-32); CHLORIDE LEVEL 103 MEQ/L (98-107); CREATININE FOR GFR 1.19 MG/DL (0.70-1.30); GLOMERULAR FILTRATION RATE > 60.0 (>56); GLUCOSE, FASTING 307 MG/DL (70-100); MAGNESIUM LEVEL 1.9 MG/DL (1.8-2.4); POTASSIUM SERUM 4.2 MEQ/L (3.5-5.1); SODIUM LEVEL 135 MEQ/L (136-145)
[2020-06-04] MEDS ORDERED: LEVEMIR (INSULIN DETEMIR) 1 UNITS/0.01ML SC SCH (09:00)
[2020-06-04] MEDS ORDERED: BASA100I SC (10:29)
[2020-06-04] MEDS ORDERED: FIFT31MI2 SC (10:50)
[2020-06-04] MEDS ORDERED: CARE1KIT XX (10:50)
[2020-06-04 11:02] LABS: HEPATITIS B SURFACE ANTIGEN NEGATIVE (NEGATIVE)
[2020-06-04 11:29] LABS: HEPATITIS B CORE ANTIBODY IGM NEGATIVE (NEGATIVE); HEPATITIS C VIRUS ABY INDEX 0.3 INDEX (<0.8)
[2020-06-04 11:33] LABS: HEPATITIS A ANTIBODY IGM NEGATIVE (NEGATIVE)
--- NOTE | 2020-06-04 11:48 | DS.PDOC ---
Discharge Summary General Date of Admission Jun 02, 2020 at 21:24 Date of Discharge 06/04/2020 Discharge Summary PROCEDURES PERFORMED DURING STAY: [None]. ADMITTING DIAGNOSES / DISCHARGE DIAGNOSES: s/p HHS - likely 2/2 undiagnosed type 2 DM s/p FREEDOM s/p Hypophosphatemia s/p Hyperkalemia HTN Lyrica GERD DVT prophylaxis COMPLICATIONS/CHIEF COMPLAINT: Complaints of dry mouth, burry vision and diarrhea HISTORY OF PRESENT ILLNESS: rashmi is a 50 year old male with PMH of HTN, GERD who presented to the ER with complaints of dry mouth, burry vision and diarrhea. On arrival to the ER patient was found to have a glucose of 1200 who was admitted to the ICU for HHS. Patient was admitted to the hospitalist service for further evaluation and treatment. Patient reports that he was not diagnosed with DM2 in the past. Has not been on any medications as an outpatient. HOSPITAL COURSE: s/p HHS - likely 2/2 undiagnosed type 2 DM - Patient does not have a prior history of DM2 - Patient was found to have a glucose of 1200 and Osmolality of 334 - He was admitted to ICU for insulin drip - Patient labs have normalized; s/p Insulin drip - c/w Levemir long acting and ISS; will be discharged with long acting insulin and glyburide - Patient has been provided a glucometer with instructions to check glucose 4 times a day - Has been started on statin - Advised to follow up with PCP within 7 days s/p FREEDOM - Cr appears to be at baseline - s/p IV fluids s/p Hypophosphatemia s/p Hyperkalemia HTN - BP well controlled - c/w Lisinopril Lyrica - c/w Gabapentin GERD - c/w Omeprazole DVT prophylaxis - c/w SCD and TEDS DISCHARGE MEDICATIONS: Please see below. ALLERGIES: Please see below. PHYSICAL EXAMINATION ON DISCHARGE: Vitals (See below) General: Lying in bed, appears comfortable, AAOx3 HEENT: NC, AT CVS: +S1S2 Lungs: Fair air entry b/l, auscultation is without any wheezing / rhonchi / rales Abdomen: Soft, non-distended, non-tender Extremities: No evidence of LE edema, - Calf tenderness LABORATORY DATA: Please see below. ACTIVITY: [As tolerated]. DISCHARGE PLAN: Follow up within PCP within 7 days Remain compliant with treatment plan and medications Return to the ER if you experience any problems DISPOSITION: Home DISCHARGE CONDITION: [Stable]. TIME SPENT ON DISCHARGE: 35 minutes. Vital Signs/I&Os Vital Signs Date Time Temp Pulse Resp B/P (MAP) Pulse Ox O2 Delivery O2 Flow Rate FiO2 06/04/20 08:11 119/78 06/04/20 06:00 98.4 86 19 96 Room Air I&O- Last 24 Hours up to 6 AM 06/04/20 05:59 Intake Total 4316.5 ml Output Total 2375 ml Balance 1941.5 ml Laboratory Data Labs 24H Laboratory Tests 2 06/04/20 07:56: Nucleated Red Blood Cells % (auto) 0.0, Anion Gap 7L, Glomerular Filtration Rate > 60.0, Calcium Level 8.5, Magnesium Level 1.9 CBC/BMP Laboratory Tests 06/04/20 07:56 Microbiology Microbiology 06/02/20 Blood Culture - Preliminary, Resulted No growth after 24 hours . All specim... Discharge Medications Scheduled Atorvastatin Calcium (Atorvastatin Calcium) 40 Mg Tablet, 1 TAB PO DAILY Glyburide (Glyburide) 1.25 Mg Tablet, 1 TAB PO BID Insulin Glargine,Hum.rec.anlog (Basaglar Kwikpen U-100) 100 Unit/1 Ml Insuln.pen, 20 UNIT SC DAILY 1 vial = 1 pen Lisinopril (Lisinopril) 10 Mg Tab, 10 MG PO DAILY, (Reported) Omeprazole (Omeprazole) 40 Mg Capsule.dr, 40 MG PO DAILY, (Reported) Pregabalin (Lyrica) 75 Mg Capsule, 75 MG PO TID, (Reported) Allergies Coded Allergies: No Known Allergies (Unverified , 10/06/19) MIKAEL SANCHEZ MD Jun 04, 2020 11:48
--- NOTE | 2020-06-14 15:58 | ECGEPIP ---
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
== END 2020-06-04 14:28 | disposition home or self-care (01) | DRG 420 ==
LOC: M ED 19:27 → M ED INP 21:24 → ENRESERV 22:06 → M ICU 23:40 → M MSPAV 06-03 16:14
PROVIDERS: ADMIT Internal Medicine; ATTEND Internal Medicine
DX: E11.65 Type 2 diabetes mellitus with hyperglycemia (principal); N17.9 Acute kidney failure, unspecified; E87.5 Hyperkalemia; E83.39 Other disorders of phosphorus metabolism; E11.40 Type 2 diabetes mellitus with diabetic neuropathy, unspecified; K21.9 Gastro-esophageal reflux disease without esophagitis; I10 Essential (primary) hypertension; Z79.899 Other long term (current) drug therapy

== ENCOUNTER → 2020-08-26 | Outpatient (CLI) | payer OTHER ==
[~2020-08-26] MED LIST changes: +ATOR40TA75 PO; +BASA100I SC; +CARE1KIT XX; +FIFT31MI2 SC; +GLYB125TA PO; +LANTINJ4 SC
[2020-08-26 18:41] LABS: BASO # 0.1 10^3/uL (0.0-0.2); EOS # 0.7 10^3/uL (0.0-0.5); EOS % 9.3 % (0.0-3.0); HEMATOCRIT 46.9 % (42.0-52.0); HEMOGLOBIN 14.5 g/dl (13.5-17.5); LYMPH # 1.4 10^3/uL (1.5-5.0); LYMPH % 20.2 % (24.0-44.0); MEAN CORPUSCULAR HEMOGLOBIN 27.4 pg (27.0-33.0); MEAN CORPUSCULAR HGB CONC 30.9 g/dl (32.0-36.5); MEAN CORPUSCULAR VOLUME 88.5 fl (80.0-96.0); MONO # 0.7 10^3/uL (0.0-0.8); MONO % 9.2 % (0.0-5.0); NEUTROPHILS # 4.2 10^3/uL (1.5-8.5); PLATELET COUNT, AUTOMATED 260 10^3/uL (150-450); WHITE BLOOD COUNT 7.1 10^3/uL (4.0-10.0)
[2020-08-26 18:44] LABS: ALBUMIN 4.2 GM/DL (3.2-5.2); ALT/SGPT 31 U/L (12-78); BILIRUBIN,TOTAL 0.8 MG/DL (0.2-1.0); BLOOD UREA NITROGEN 18 MG/DL (7-18); CALCIUM LEVEL 9.1 MG/DL (8.5-10.1); CARBON DIOXIDE LEVEL 28 MEQ/L (21-32); CHLORIDE LEVEL 107 MEQ/L (98-107); CHOLESTEROL LEVEL 91 MG/DL (<200); CHOLESTEROL RISK RATIO 2.022 (<5); CREATININE FOR GFR 1.12 MG/DL (0.70-1.30); GLOMERULAR FILTRATION RATE > 60.0 (>56); GLUCOSE, FASTING 86 MG/DL (70-100); HDL CHOLESTEROL 45 MG/DL (>40); LDL CHOLESTEROL 30 MG/DL (<100); NON-HDL-C 46 MG/DL; POTASSIUM SERUM 4.5 MEQ/L (3.5-5.1); SODIUM LEVEL 140 MEQ/L (136-145); TOTAL PROTEIN 7.2 GM/DL (6.4-8.2); TRIGLYCERIDES LEVEL 78 MG/DL (<150)
[2020-08-26 19:12] LABS: HEMOGLOBIN A1c 6.6 %
== END ==
LOC: M WUC 08:39
PROVIDERS: ATTEND Family Medicine
DX: K21.9 Gastro-esophageal reflux disease without esophagitis (principal); F52.21 Male erectile disorder; E11.9 Type 2 diabetes mellitus without complications; I10 Essential (primary) hypertension

== ENCOUNTER → 2020-11-23 | Outpatient (CLI) | payer OTHER ==
[~2020-11-23] MED LIST changes: +LISI10TA22 PO; -LISI10TA4 PO
[2020-11-23 10:30] LABS: HEMOGLOBIN A1c 5.6 %
[2020-11-23 10:40] LABS: ALT/SGPT 23 U/L (12-78); BILIRUBIN,TOTAL 0.8 MG/DL (0.2-1.0); BLOOD UREA NITROGEN 18 MG/DL (7-18); CALCIUM LEVEL 9.5 MG/DL (8.5-10.1); CARBON DIOXIDE LEVEL 31 MEQ/L (21-32); CHLORIDE LEVEL 106 MEQ/L (98-107); GLOMERULAR FILTRATION RATE > 60.0 (>56); GLUCOSE, FASTING 82 MG/DL (70-100); POTASSIUM SERUM 4.8 MEQ/L (3.5-5.1); SODIUM LEVEL 142 MEQ/L (136-145); TOTAL PROTEIN 7.4 GM/DL (6.4-8.2)
[2020-11-24 08:13] LABS: PSA TOTAL 0.7 ng/mL (0.0-4.0)
== END ==
LOC: M WUC 08:21
PROVIDERS: ATTEND Physician Assistant
DX: E11.9 Type 2 diabetes mellitus without complications (principal); Z12.5 Encounter for screening for malignant neoplasm of prostate

== ENCOUNTER → 2020-12-24 | Outpatient (REF) | payer OTHER | LOC: M LAB REF 18:52 | PROVIDERS: ATTEND Physician Assistant | DX: R51.9 Headache, unspecified (principal) ==

== ENCOUNTER 2020-12-30 17:02 | Emergency (ER) | payer OTHER ==
[~2020-12-30] VITALS: Ht 172.7 cm; Wt 91.5 kg
[2020-12-30] MEDS ORDERED: BUTA-198 (17:12)
[2020-12-30] MEDS ORDERED: METF-838 (17:12)
[2020-12-30] MEDS ORDERED: NS 1,000 ML IV ONE (17:55)
[2020-12-30] MEDS ORDERED: BENZONATATE 100 MG CAP PO ONE (17:55)
[2020-12-30] MEDS: ALBUTEROL 90 MCG/ACT 8GM HFA INHALER INH SCH ×3 (18:08→18:34)
[2020-12-30 18:45] LABS: BASO % 0.7 % (0.0-1.0); HEMATOCRIT 42.2 % (42.0-52.0); HEMOGLOBIN 13.6 g/dl (13.5-17.5); LYMPH # 0.7 10^3/uL (1.5-5.0); LYMPH % 24.8 % (24.0-44.0); MEAN CORPUSCULAR HEMOGLOBIN 27.1 pg (27.0-33.0); MEAN CORPUSCULAR HGB CONC 32.2 g/dl (32.0-36.5); MEAN CORPUSCULAR VOLUME 84.1 fl (80.0-96.0); MONO # 0.3 10^3/uL (0.0-0.8); MONO % 10.5 % (2.0-8.0); NEUTROPHILS # 1.8 10^3/uL (1.5-8.5); NEUTROPHILS % 62.3 % (36.0-66.0); PLATELET COUNT, AUTOMATED 162 10^3/uL (150-450); RED BLOOD COUNT 5.02 10^6/uL (4.30-6.10); WHITE BLOOD COUNT 2.9 10^3/uL (4.0-10.0)
[2020-12-30 18:55] LABS: RSV AMPLIFICATION NEGATIVE (NEGATIVE)
--- NOTE | 2020-12-30 18:55 | REP ---
INDICATION: cough, SOB. COMPARISON: Comparison chest x-ray March 10, 2016. TECHNIQUE: Portable upright AP chest radiograph. FINDINGS: There is mild linear platelike atelectasis in the right base. A relatively low level of inspiration with resultant crowding of vascular markings. No definite infiltrate. Heart is not felt to be enlarged. Pleural angles are sharp.. IMPRESSION: Relatively low level of inspiration. Crowding of bronchovascular markings. No definite infiltrate.. <Electronically signed by Bryant Antunez > 12/30/20 [id number]
[2020-12-30 18:57] LABS: INR 1.01; PROTHROMBIN TIME 13.5 SECONDS (12.5-14.3)
[2020-12-30 18:58] LABS: PARTIAL THROMBOPLASTIN TIME 38.3 SECONDS (24.2-38.5)
[2020-12-30 19:00] LABS: D-DIMER QUANT 490.04 ng/ml (<500)
[2020-12-30 19:10] LABS: CK-MB VALUE MASS < 1.0 NG/ML (<3.6); CPK CREATINE PHOSPHOKINASE 155 U/L (39-308); MB/CK RELATIVE INDEX 0.65 (< OR =4); TROPONIN I < 0.02 NG/ML (< 0.10)
[2020-12-30] MEDS ORDERED: ISOVUE-370 76% 100ML VIAL As Ordered ONE (19:48)
--- NOTE | 2020-12-30 20:58 | REPVR ---
PROCEDURE INFORMATION: Exam: CT Angiography Chest With Contrast Exam date and time: 12/30/2020 8:05 PM Age: 50 years old Clinical indication: SOB, cough, elevated D-dimer, chest pain TECHNIQUE: Imaging protocol: Computed tomographic angiography of the chest with contrast. 3D rendering (Not supervised by radiologist): MIP and/or 3D reconstructed images were created by the technologist. Radiation optimization: All CT scans at this facility use at least one of these dose optimization techniques: automated exposure control; mA and/or kV adjustment per patient size (includes targeted exams where dose is matched to clinical indication); or iterative reconstruction. Contrast material: ISOVUE 370; Contrast volume: 75 ml; Contrast route: INTRAVENOUS (IV); COMPARISON: CR PORTABLE CHEST X-RAY 12/30/2020 6:09 PM FINDINGS: Pulmonary arteries: No pulmonary embolism. Aorta: The thoracic aorta is intact and patent. There is no thoracic aortic aneurysm, pseudoaneurysm, penetrating atherosclerotic ulcer, intramural hematoma, or dissection. Great vessels off aortic arch: The brachiocephalic artery, imaged proximal portions of the common carotid arteries, imaged proximal portions of the vertebral arteries, and subclavian arteries are intact. No stenosis or occlusion of these vessels is noted. Trachea: Normal. Bronchial tree: Normal. Lungs: There are ground-glass opacities with superimposed consolidation in the left lower lobe. There are also ground-glass opacities in the periphery of the right upper lobe, right middle lobe, right lower lobe, and left upper lobe. No cavitary lesion is noted. There is dependent atelectasis in both lower lobes. Pleural spaces: Normal. No pneumothorax or pleural effusion. Heart: No cardiomegaly. No pericardial effusion. The ratio of the diameter of the right ventricle to the diameter of the left ventricle measures less than 1, which is within normal limits and there is no evidence for a right ventricular strain. There are coronary artery calcifications. Mediastinal space: No mediastinal mass, fluid collection, or pneumomediastinum. Lymph nodes: No enlarged lymph nodes. Gallbladder and bile ducts: No calcified gallstones are noted. No gallbladder wall thickening, pericholecystic fluid, or pericholecystic inflammatory changes are identified. No dilation of the bile ducts is noted. No calcified stones are seen in the common bile duct. Bones/joints: There is no fracture or dislocation. No suspicious osteolytic or osteoblastic lesion. There are endplate spurs in the thoracic spine. Soft tissues: Unremarkable. No soft tissue fluid collection. IMPRESSION: 1. No pulmonary embolism. 2. Commonly reported imaging features of COVID-19 pneumonia are present. Other processes such as influenza pneumonia and organizing pneumonia, as can be seen with drug toxicity and connective tissue disease, can cause a similar imaging pattern. (Reference: Kam) REFERENCES: Kam Arizmendi, et al., Rad[employer] Society of [place] Expert Consensus Statement on Reporting Chest CT Findings Related to COVID-19. Endorsed by the Society of [employer]acic Radiology, the [place] [employer], and [employer]NA. Published December 28, 2019. Electronically signed by: Josh Queen On 12/30/2020 20:57:23 PM
[2020-12-30] MEDS ORDERED: TESS100C PO (21:42)
[2020-12-30] MEDS ORDERED: PROAAER10 INH (21:42)
[2020-12-30 23:11] VITALS: BP 122/76
--- NOTE | 2020-12-31 19:51 | ECGEPIP ---
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
== END 2020-12-30 23:14 | disposition home or self-care (01) ==
LOC: M ED 17:02
DX: Z11.52 Encounter for screening for COVID-19 (principal); R06.02 Shortness of breath; R05 Cough; R51.9 Headache, unspecified; E11.9 Type 2 diabetes mellitus without complications; I10 Essential (primary) hypertension; G62.9 Polyneuropathy, unspecified; K21.9 Gastro-esophageal reflux disease without esophagitis; Z79.899 Other long term (current) drug therapy; Z79.4 Long term (current) use of insulin
CPT/HCPCS: 71045; 71275; 80047; 82550; 82553; 85025; 85379; 85610; 85730; 87631; 93005; 94640; 96360; 99284; Q9967

== ENCOUNTER → 2021-01-08 | Outpatient (CLI) | payer OTHER ==
[~2021-01-08] MED LIST changes: +BUTA-198; +METF-838; +PROAAER10 INH; +TESS100C PO
--- NOTE | 2021-01-08 10:11 | REP ---
INDICATION: PNEUMONIA, UNSPECIFIED COMPARISON: 12/30/2020 TECHNIQUE: PA and lateral. FINDINGS: Vague bilateral primarily perihilar and lower lobe airspace disease (left greater than right) is suggested and correlation with physical examination and auscultation is recommended. No discrete focal consolidation, effusion, or pneumothorax. IMPRESSION: Moderate vague bilateral perihilar/lower lobe airspace disease (left greater than right) suggested. <Electronically signed by Puma Young > 01/08/21 [id number]
== END ==
LOC: M WUC 09:57
PROVIDERS: ATTEND Family Medicine
DX: J18.9 Pneumonia, unspecified organism (principal)

== ENCOUNTER → 2021-05-20 | Outpatient (CLI) | payer OTHER ==
[~2021-05-20] MED LIST changes: +OMEP40CA4 PO; -OMEP40CA97 PO
[2021-05-20 09:23] LABS: BASO # 0.1 10^3/uL (0.0-0.2); BASO % 1.2 % (0.0-1.0); EOS # 0.7 10^3/uL (0.0-0.5); EOS % 9.6 % (0.0-3.0); HEMOGLOBIN 14.1 g/dl (13.5-17.5); LYMPH # 1.3 10^3/uL (1.5-5.0); LYMPH % 17.2 % (24.0-44.0); MEAN CORPUSCULAR HEMOGLOBIN 26.8 pg (27.0-33.0); MEAN CORPUSCULAR VOLUME 83.5 fl (80.0-96.0); MONO # 0.7 10^3/uL (0.0-0.8); MONO % 8.9 % (2.0-8.0); NEUTROPHILS # 4.6 10^3/uL (1.5-8.5); NEUTROPHILS % 62.8 % (36.0-66.0); PLATELET COUNT, AUTOMATED 226 10^3/uL (150-450); RED BLOOD COUNT 5.27 10^6/uL (4.30-6.10); WHITE BLOOD COUNT 7.3 10^3/uL (4.0-10.0)
[2021-05-20 09:49] LABS: ALBUMIN 3.9 GM/DL (3.2-5.2); ALT/SGPT 24 U/L (12-78); BILIRUBIN,TOTAL 0.6 MG/DL (0.2-1.0); BLOOD UREA NITROGEN 18 MG/DL (7-18); CALCIUM LEVEL 8.7 MG/DL (8.5-10.1); CARBON DIOXIDE LEVEL 29 MEQ/L (21-32); CHLORIDE LEVEL 110 MEQ/L (98-107); CHOLESTEROL LEVEL 86 MG/DL (<200); CREATININE FOR GFR 0.99 MG/DL (0.70-1.30); GLOMERULAR FILTRATION RATE > 60.0 (>56); GLUCOSE, FASTING 86 MG/DL (70-100); HDL CHOLESTEROL 50 MG/DL (>40); LDL CHOLESTEROL 25 MG/DL (<100); NON-HDL-C 36 MG/DL; POTASSIUM SERUM 3.9 MEQ/L (3.5-5.1); SODIUM LEVEL 143 MEQ/L (136-145); TOTAL PROTEIN 7.3 GM/DL (6.4-8.2); TRIGLYCERIDES LEVEL 54 MG/DL (<150)
[2021-05-20 10:38] LABS: HEMOGLOBIN A1c 5.8 %
== END ==
LOC: M LAB 08:54
PROVIDERS: ATTEND Physician Assistant
DX: E11.9 Type 2 diabetes mellitus without complications (principal)

== ENCOUNTER 2023-01-20 08:26 | Emergency (ER) | payer OTHER ==
[~2023-01-20] VITALS: Ht 172.7 cm; Wt 82.3 kg
[2023-01-20] MEDS ORDERED: KETOROLAC 60MG 2ML VIAL IM ONE (12:20)
[2023-01-20 13:21] VITALS: BP 141/94
== END 2023-01-20 13:30 | disposition home or self-care (01) ==
LOC: M ED 08:26
DX: M54.50 Low back pain, unspecified (principal); M25.511 Pain in right shoulder; M54.2 Cervicalgia; Z79.4 Long term (current) use of insulin; Z79.899 Other long term (current) drug therapy; Z79.84 Long term (current) use of oral hypoglycemic drugs
CPT/HCPCS: 72110; 72125; 73030; 96372; 99283; J1885

== ENCOUNTER → 2023-02-04 | Outpatient (CLI) | payer OTHER | LOC: M PLAIMG 14:48 | PROVIDERS: ATTEND Physician Assistant | DX: S46.011A Strain of muscle(s) and tendon(s) of the rotator cuff of right shoulder, initial encounter (principal); M25.711 Osteophyte, right shoulder; M25.411 Effusion, right shoulder; M67.813 Other specified disorders of tendon, right shoulder ==

== ENCOUNTER 2023-02-26 07:44 | Outpatient (RCR) | payer OTHER | END 2023-03-04 | LOC: M PT 07:44 | PROVIDERS: ATTEND Physician Assistant | DX: S46.001A Unspecified injury of muscle(s) and tendon(s) of the rotator cuff of right shoulder, initial encounter (principal) ==

== ENCOUNTER 2023-04-01 07:45 | Outpatient (RCR) | payer OTHER | END 2023-04-03 | LOC: M PT 07:45 | PROVIDERS: ATTEND Physician Assistant | DX: S46.011D Strain of muscle(s) and tendon(s) of the rotator cuff of right shoulder, subsequent encounter (principal) ==

== ENCOUNTER 2023-04-30 07:38 | Outpatient (RCR) | payer OTHER ==
[~2023-04-30 07:38] MED LIST changes: +CLIC31MI6 SC; -FIFT31MI2 SC
== END 2023-05-04 ==
LOC: M PT 07:38
PROVIDERS: ATTEND Physician Assistant
DX: S46.001A Unspecified injury of muscle(s) and tendon(s) of the rotator cuff of right shoulder, initial encounter (principal)

== ENCOUNTER → 2023-06-23 | Outpatient (CLI) | payer OTHER | LOC: M PLAIMG 07:49 | PROVIDERS: ATTEND Orthopaedic Surgery | DX: S46.011A Strain of muscle(s) and tendon(s) of the rotator cuff of right shoulder, initial encounter (principal); Y93.9 Activity, unspecified; Y92.9 Unspecified place or not applicable ==

== ENCOUNTER → 2024-10-28 | Outpatient (CLI) | payer OTHER ==
[~2024-10-28] VITALS: Ht 172.7 cm; Wt 85.0 kg
[~2024-10-28] MED LIST changes: -CLIC31MI6 SC; +PEN-371 SC
[2024-10-28 08:09] VITALS: BP 139/66; O2SAT 99
[2024-10-28] MEDS: IRON SUCROSE 500 MG in NS 250 ML OVER 4 HRS IV ONE (08:42)
[2024-10-28 09:45] VITALS: BP 120/87; O2SAT 97
[2024-10-28 10:45] VITALS: BP 113/78; O2SAT 98
[2024-10-28 11:45] VITALS: BP 121/71; O2SAT 97
[2024-10-28 13:00] VITALS: BP 130/74; O2SAT 98
== END ==
LOC: M INFU 07:57
PROVIDERS: ATTEND Nurse Practitioner Adult Health
DX: D50.9 Iron deficiency anemia, unspecified (principal)
CPT/HCPCS: 96365; 96366; J1756

== ENCOUNTER 2024-11-14 07:59 | Outpatient (CLI) | payer OTHER ==
[~2024-11-14] VITALS: Ht 172.7 cm; Wt 85.0 kg
[2024-11-14 08:20] VITALS: BP 137/64; O2SAT 100
[2024-11-14] MEDS: IRON SUCROSE 500 MG in NS 250 ML OVER 4 HRS IV ONE (09:05)
[2024-11-14 10:00] VITALS: BP 141/71; O2SAT 100
[2024-11-14 11:00] VITALS: BP 124/62; O2SAT 100
[2024-11-14 12:00] VITALS: BP 133/74; O2SAT 100
[2024-11-14 13:00] VITALS: BP 138/78; O2SAT 98
== END 2024-11-14 13:10 ==
LOC: M INFU 07:59
PROVIDERS: ATTEND Nurse Practitioner Adult Health
DX: D50.9 Iron deficiency anemia, unspecified (principal)
CPT/HCPCS: 96365; 96366; J1756

== ENCOUNTER 2025-05-22 11:45 | Day surgery (SDC) | payer OTHER ==
[~2025-05-22] VITALS: Ht 172.7 cm; Wt 89.4 kg
[~2025-05-22 11:45] MED LIST changes: -BUTA-198; +BUTA-198 PO; +FERR325T3 PO; +FOLI1TAB11 PO; +TRUL10IN SC
[2025-05-22] MEDS ORDERED: LIDOCAINE 2% 100 MG/5 ML SDV (FOR ANES.) As Ordered ONE (12:39)
[2025-05-22 13:10] VITALS: BP 109/75; TEMP 97.8; O2SAT 96
== END 2025-05-22 13:23 | disposition home or self-care (01) ==
LOC: M OPP 11:45
PROVIDERS: ATTEND Surgery
DX: Z86.0100 Personal history of colon polyps, unspecified (principal); Z79.4 Long term (current) use of insulin; Z79.85 Long-term (current) use of injectable non-insulin antidiabetic drugs; Z79.899 Other long term (current) drug therapy; F17.290 Nicotine dependence, other tobacco product, uncomplicated

== ENCOUNTER 2025-10-04 09:48 | Day surgery (SDC) | payer OTHER ==
[~2025-10-04] VITALS: Ht 170.2 cm; Wt 93.0 kg
[~2025-10-04 09:48] MED LIST changes: -IBUP-1022 PO; +IBUP600T42 PO; +OMEP-173 PO
[2025-10-04] MEDS ORDERED: LIDOCAINE 2% 100 MG/5 ML SDV (FOR ANES.) As Ordered ONE (11:46)
[2025-10-04 12:25] VITALS: BP 130/81; O2SAT 98
== END 2025-10-04 12:42 | disposition home or self-care (01) ==
LOC: M OPP 09:48
PROVIDERS: ATTEND Surgery
DX: D50.9 Iron deficiency anemia, unspecified (principal); K44.9 Diaphragmatic hernia without obstruction or gangrene; E11.9 Type 2 diabetes mellitus without complications; Z79.4 Long term (current) use of insulin; Z79.85 Long-term (current) use of injectable non-insulin antidiabetic drugs; Z79.899 Other long term (current) drug therapy